=== PATIENT | male | born 1940 | race American Indian/Alaskan Native ===

== ENCOUNTER → 2021-10-01 | Outpatient (CLI) | payer OTHER | END | disposition home or self-care (01) | LOC: NUCLEAR 07:00 | PROVIDERS: ATTEND Internal Medicine Gastroenterology | DX: Z01.89 Encounter for other specified special examinations (principal); K57.30 Diverticulosis of large intestine without perforation or abscess without bleeding; R63.4 Abnormal weight loss | CPT/HCPCS: 78812; A9552 ==

== ENCOUNTER 2023-08-07 10:27 | Outpatient (CLI) | payer OTHER | END 2023-08-07 10:42 | disposition home or self-care (01) | LOC: MRI 10:27 | DX: M25.552 Pain in left hip (principal); R26.89 Other abnormalities of gait and mobility; M51.26 Other intervertebral disc displacement, lumbar region; M48.061 Spinal stenosis, lumbar region without neurogenic claudication; R20.2 Paresthesia of skin; R10.2 Pelvic and perineal pain | CPT/HCPCS: 72148; 72195; 73718 ==